=== PATIENT | male | born 1970 | race Caucasian/White ===

== ENCOUNTER → 2016-09-16 | Outpatient (CLI) | payer OTHER | LOC: KOH-I 08:45 | DX: M54.5 Low back pain (principal); M51.36 Other intervertebral disc degeneration, lumbar region | CPT/HCPCS: 72148 ==

== ENCOUNTER 2020-06-17 08:51 | Emergency (ER) | payer OTHER ==
[2020-06-17] MEDS ORDERED: MOBIC15 MG PO (10:34)
== END 2020-06-17 10:50 | disposition home or self-care (01) ==
LOC: ER1 08:51
DX: S90.31XA Contusion of right foot, initial encounter (principal); E11.9 Type 2 diabetes mellitus without complications; Z88.5 Allergy status to narcotic agent; W04.XXXA Fall while being carried or supported by other persons, initial encounter; Y92.009 Unspecified place in unspecified non-institutional (private) residence as the place of occurrence of the external cause
CPT/HCPCS: 73630; 99283